=== PATIENT | male | born 1965 | race American Indian/Alaskan Native ===

== ENCOUNTER → 2021-11-29 10:53 | Outpatient (CLI) | payer OTHER, MEDICAID, SELFPAY ==
--- NOTE | 2021-11-29 12:54 | DI.RAD.S_ITS ---
PROCEDURE: XR LUMBAR SPINE 2-3V INDICATIONS: PAIN/NUMBNESS TECHNIQUE: 3 views of the lumbar spine were acquired. COMPARISON: None. FINDINGS: Bones: 5 [id number] vertebrae are present. There is normal bony alignment. No vertebral body compression fractures. No suspicious bony lesions. Multilevel disc height loss with endplate sclerosis and spurring, most notably and moderate L4-L5 and L5-S1 where there is mild facet joint arthropathy. Soft tissues: Overlying bowel gas pattern is normal. No suspicious soft tissue calcifications. IMPRESSION: Multilevel spondylosis, most notably L4-L5 and L5-S1. Dictated by: Justin Wilson [facility] Interpreted: Aleena Goodson MD on 11/29/2021 at 14:46 Transcribed by: DIONISIO on 11/29/2021 at 14:47 Approved by: Aleena Goodson M.D. on 12/01/2021 at 7:34
--- NOTE | 2021-11-29 12:54 | DI.RAD.S_ITS ---
PROCEDURE: XR CERVICAL SPINE 2V OR 3V INDICATIONS: PAIN/NUMBNESS TECHNIQUE: 4 view(s) of the cervical spine were acquired. COMPARISON: None. FINDINGS: Bones: No fractures or dislocations to the T1 level. The lateral masses of C1 appear intact on the odontoid view. No suspicious bony lesions. Loss of lordosis which could be related to muscle spasm, rigidity or simply positional. Multilevel disc height loss with endplate sclerosis and spurring, most notably and moderate to severe C5-C6 and C6-C7. Mild multilevel mid and lower cervical spine facet joint arthropathy and uncovertebral hypertrophy. Soft tissues: No prevertebral soft tissue swelling. IMPRESSION: Loss of lordosis and multilevel spondylosis. Dictated by: Justin Wilson [facility] Interpreted: Aleena Goodson MD on 11/29/2021 at 14:45 Transcribed by: DIONISIO on 11/29/2021 at 14:46 Approved by: Aleena Goodson M.D. on 12/01/2021 at 7:34
--- NOTE | 2021-11-29 12:54 | DI.RAD.S_ITS ---
PROCEDURE: XR SHOULDER LT MIN 2V INDICATIONS: PAIN/NUMBNESS TECHNIQUE: 3 views of the shoulder were acquired. COMPARISON: None. FINDINGS: Bones: No fractures or dislocations. No suspicious bony lesions. Visualized ribs appear intact. Mild acromioclavicular and severe glenohumeral joint space narrowing with periarticular osteophyte formation. Soft tissues: Calcification seen along the superior lateral margin of the humeral head soft tissues. IMPRESSION: 1. Mild acromioclavicular and severe glenohumeral joint degeneration. 2. Calcific tendinitis versus calcific bursitis. Dictated by: Justin Wilson [facility] Interpreted: Aleena Goodson MD on 11/29/2021 at 14:47 Transcribed by: DIONISIO on 11/29/2021 at 14:48 Approved by: Aleena Goodson M.D. on 12/01/2021 at 7:35
== END ==
DX: M47.22 Other spondylosis with radiculopathy, cervical region (principal); M47.26 Other spondylosis with radiculopathy, lumbar region; M47.27 Other spondylosis with radiculopathy, lumbosacral region; M19.012 Primary osteoarthritis, left shoulder; M79.622 Pain in left upper arm; M54.50 Low back pain, unspecified; R20.0 Anesthesia of skin; G89.29 Other chronic pain
CPT/HCPCS: 72040; 72100; 73030

== ENCOUNTER 2022-08-03 20:16 | Emergency (ER) | payer OTHER, MEDICAID, SELFPAY ==
[2022-08-03 20:23] VITALS: BP 151/74; PULSE 67; RESP 18; TEMP 36.6; O2SAT 98
[2022-08-03] MEDS: PROPARACAINE 0.5% OPHTH SOL 1 DROPS EYE-LEFT (21:01)
[2022-08-03] MEDS: FLUORESCEIN 1 MG STRIP EYE-BOTH (21:01)
--- NOTE | 2022-08-03 22:28 | ED.GENADULT ---
HPI - General Adult General Chief complaint: Eye Problems Stated complaint: something in left eye Time Seen by Provider: 08/03/22 20:45 Source: patient Mode of arrival: Ambulatory Limitations: no limitations History of Present Illness HPI narrative: Patient is a 57-year-old male who does wear corrective lenses who is here for evaluation of what he thinks is potentially paint chips in his left eye. He was screaming pain to the time. He has tried to wash his eye but is still having quite a bit of irritation. Related Data Previous Rx's Medication Instructions Recorded erythromycin 5 mg/gram (0.5 %) eye 0.5 inch EYE-LEFT TID #3.5 grams 08/03/22 ointment Review of Systems Eyes Eyes: Reports system reviewed and no additional complaints, except as documented Integumentary/Breasts Skin/Breast: Reports system reviewed and no additional complaints, except as documented Patient History Social History Smoking Status: Current every day smoker Smoking Status: Current every day smoker Substance Use Type: does not use Exam Initial Vital Signs Initial Vital Signs: Vital Signs Temperature 98 F 08/03/22 20:23 Pulse Rate 67 08/03/22 20:23 Respiratory Rate 18 08/03/22 20:23 Blood Pressure 151/74 H 08/03/22 20:23 Pulse Oximetry 98 08/03/22 20:23 Oxygen Delivery Method Room Air 08/03/22 20:23 Eyes Other: With fluorescein staining there does appear to be a small uptake in the left eye mid visual axis. With slit-lamp there are no foreign bodies. There actually multiple small abrasions around the cornea. No signs of ulcerations. Skin General: no rashes or lesions noted Course Orders Ordered: Discontinued Medications Erythromycin (Erythromycin Ophth 1 Gm Oint) 1 applic EYE-LEFT NOW ONE Stop: 08/03/22 22:30 Last Admin: 08/03/22 22:36 Dose: 1 applic Documented By: MICHAELA Fluorescein Sodium (Fluorescein 1 Mg Strip) 1 mg EYE-BOTH NOW ONE Stop: 08/03/22 20:46 Last Admin: 08/03/22 21:01 Dose: 1 mg Documented By: MICHAELA Ibuprofen (Ibuprofen 400 Mg Tablet) 800 mg PO NOW ONE Stop: 08/03/22 22:32 Last Admin: 03/30/23 22:35 Dose: 800 mg Documented By: MICHAELA Proparacaine HCl (Proparacaine 0.5% Ophth Ina) 1 drops EYE-LEFT NOW ONE Stop: 08/03/22 20:46 Last Admin: 08/03/22 21:01 Dose: 1 drop Documented By: MICHAELA Vital Signs Vital signs: Vital Signs - 8 hr 08/03/22 22:42 Temperature 97.2 F L Pulse Rate 70 Respiratory Rate 16 Blood Pressure 138/68 Pulse Oximetry 98 Oxygen Delivery Method Room Air Medical Decision Making MDM Narrative Medical decision making narrative: Patient does have multiple small abrasions to the left eye. There are no foreign bodies noted. Will place the patient on antibiotic ointment. He can take Tylenol for discomfort. Will discharge patient home with antibiotic ointment. He expressed understanding and agreement with plan. Discharge Plan Departure Patient Disposition: Home Clinical Impression: Corneal abrasion Instructions: DI for Corneal Abrasion Activity Restrictions/Additional Instructions: Use the erythromycin ointment as directed. You can take ibuprofen for any discomfort. Return to the emergency department for new symptoms. Prescriptions: New erythromycin 5 mg/gram (0.5 %) ointment 0.5 inch EYE-LEFT TID Qty: 3.5 2RF Stand Alone Forms: Patient Portal/API
[2022-08-03] MEDS: IBUPROFEN 400 MG TABLET 800 MG PO (22:35)
[2022-08-03] MEDS: ERYTHROMYCIN OPHTH 1 GM OINT 1 APPLIC EYE-LEFT (22:36)
[2022-08-03 22:42] VITALS: BP 138/68; PULSE 70; RESP 16; TEMP 36.2; O2SAT 98
== END 2022-08-03 22:42 | disposition home or self-care (01) ==
PROVIDERS: Emergency Provider Emergency Medicine
DX: S05.02XA Injury of conjunctiva and corneal abrasion without foreign body, left eye, initial encounter (principal)
CPT/HCPCS: 99282; 99283